=== PATIENT | male | born 1950 | race Hispanic/Latino ===

== ENCOUNTER 2018-11-06 01:38 | Emergency (ER) | payer BC, MEDICARE, OTHER ==
[~2018-11-06 01:38] MED LIST: ASPI-12 PO; DOCU50CA13 PO; FENO135C4 PO; FISH1CAP27 PO; FURO20TA6 PO; INSLAN SQ; METO50 PO; RAMI10CA69 PO; ROSU20TA23 PO; TYL3 PO; UBID200C18 PO
[2018-11-06] MEDS ORDERED: SODIUM CHLORIDE 0.9% 1000ML 1,000 ML IV ONE (02:20)
[2018-11-06 02:35] LABS: APPEARANCE,URINE Clear (CLEAR); BILIRUBIN,URINE Negative (NEGATIVE); COLOR,URINE Yellow (YELLOW); GLUCOSE, URINE (UA) >=1000 mg/dL (NEGATIVE); KETONES,URINE Negative (NEGATIVE); LEUKOCYTE ESTERASE ,URINE Small (NEGATIVE); NITRATE,URINE Negative (NEGATIVE); OCCULT BLOOD,URINE Negative (NEGATIVE); PH,URINE 5.5 (5.0-8.0); PROTEIN,URINE POS 1+ mg/dL (NEGATIVE); UROBILINOGEN,URINE 0.2 mg/dL (0.2-1.0)
[2018-11-06 02:43] LABS: BASOPHILS % (AUTO) 0.8 % (0.0-5.0); EOSINOPHILS % (AUTO) 3.2 % (0.0-8.0); HEMATOCRIT 45.7 % (42-54); LYMPHOCYTES % (AUTO) 24.2 % (21.0-51.0); MEAN CORPUSCULAR HEMOGLOBIN 28.5 pg (27.0-33.0); MEAN CORPUSCULAR HGB CONC 33.6 g/dL (32.0-36.0); MEAN CORPUSCULAR VOLUME 84.8 fL (79-99); MONOCYTES % (AUTO) 7.6 % (3.0-13.0); NEUTROPHILS % (AUTO) 64.2 % (40.0-77.0); PLATELET COUNT (AUTO) 126 K/uL (130-400); RED BLOOD CELL COUNT(AUTO) 5.38 MIL/uL (4.50-6.20); RED CELL DISTRIBUTION WIDTH 15.1 % (11.0-15.5); WHITE BLOOD COUNT (AUTO) 7.5 K/uL (4.8-10.8)
[2018-11-06 02:51] LABS: CREATININE 1.3 mg/dL (0.5-1.5); POTASSIUM 3.6 mmol/L (3.5-5.1)
[2018-11-06 02:53] LABS: BACTERIA,URINE Rare /HPF (None Seen); RBC,URINE 0-1 /HPF (0-1); WBC,URINE 0-1 /HPF (0-1)
== END 2018-11-06 04:47 | disposition home or self-care (01) ==
LOC: EDH 01:38
DX: S00.93XA Contusion of unspecified part of head, initial encounter (principal); I10 Essential (primary) hypertension; E11.9 Type 2 diabetes mellitus without complications; Z95.1 Presence of aortocoronary bypass graft; W07.XXXA Fall from chair, initial encounter; Y93.89 Activity, other specified; Y92.89 Other specified places as the place of occurrence of the external cause; Y99.8 Other external cause status
CPT/HCPCS: 36415; 70450; 80048; 81001; 84484; 85025; 93005; 96360; 99285; J7030

== ENCOUNTER → 2018-11-15 | Outpatient (CLI) | payer OTHER | END | disposition home or self-care (01) | LOC: RAH 16:08 | PROVIDERS: ATTEND Internal Medicine | DX: M51.37 Other intervertebral disc degeneration, lumbosacral region (principal); M51.36 Other intervertebral disc degeneration, lumbar region | CPT/HCPCS: 72100; 72220 ==

== ENCOUNTER → 2019-01-19 | Outpatient (CLI) | payer OTHER | END | disposition home or self-care (01) | LOC: SHCH 10:49 | PROVIDERS: ATTEND Internal Medicine Cardiovascular Disease | DX: R60.9 Edema, unspecified (principal) | CPT/HCPCS: 93970 ==

== ENCOUNTER 2020-04-11 10:09 | Day surgery (SDC) | payer OTHER ==
[2020-04-09 09:05] VITALS: BP 137/68
[2020-04-09 09:47] LABS: BASOPHILS % (AUTO) 0.7 % (0.0-5.0); EOSINOPHILS % (AUTO) 3.5 % (0.0-8.0); HEMATOCRIT 47.1 % (42-54); LYMPHOCYTES % (AUTO) 23.1 % (21.0-51.0); MEAN CORPUSCULAR HEMOGLOBIN 28.7 pg (27.0-33.0); MEAN CORPUSCULAR HGB CONC 32.7 g/dL (32.0-36.0); MEAN CORPUSCULAR VOLUME 87.9 fL (79-99); MONOCYTES % (AUTO) 8.4 % (3.0-13.0); PLATELET COUNT (AUTO) 167 K/uL (130-400); RED BLOOD CELL COUNT(AUTO) 5.36 MIL/uL (4.50-6.20); RED CELL DISTRIBUTION WIDTH 13.4 % (11.0-15.5); WHITE BLOOD COUNT (AUTO) 7.7 K/uL (4.8-10.8)
[2020-04-09 09:54] LABS: CREATININE 1.4 mg/dL (0.5-1.5); POTASSIUM 4.1 mmol/L (3.5-5.1)
[2020-04-09 09:58] LABS: INR 1.01 (0.85-1.15)
[2020-04-09 10:00] LABS: PARTIAL THROMBOPLASTIN TIME 23.6 SEC (26.3-35.5)
[2020-04-11] VITALS (7 sets, daily range): BP systolic 119–198; BP diastolic 66–90
[~2020-04-11] VITALS: Ht 162.6 cm; Wt 103.7 kg
[~2020-04-11 10:09] MED LIST changes: -ASPI-12 PO; +CHLO25TA3 PO; +D ME PO; +DOCU100T9 PO; -DOCU50CA13 PO; +DULA0.75 SQ; +EMPA1TAB5 PO; +EZET10TA48 PO; -FENO135C4 PO; -FURO20TA6 PO; -INSLAN SQ; +INSU100V37 SQ; +INSU200I SQ; +MEMA5TAB42 PO; +METO100T14 PO; -METO50 PO; +QUET25TA34 PO; +SODIUM CHLORIDE 0.9% 1000ML 1,000 ML IV SCH; -TYL3 PO; -UBID200C18 PO
[2020-04-11] MEDS ORDERED: BUPIVACAINE/PF 0.25% 30ML VIAL IJ ONE (11:21)
[2020-04-11] MEDS ORDERED: FENTANYL CITRATE PF 50 MCG/1 ML 2ML VIAL ONE (11:21)
[2020-04-11] MEDS ORDERED: LIDOCAINE HCL 1% MDV 50ML VIAL ONE (11:21)
[2020-04-11] MEDS ORDERED: MIDAZOLAM HCL 1 MG/ML 2ML VIAL ONE (11:21)
== END 2020-04-11 13:59 | disposition home or self-care (01) ==
LOC: DAH 10:09
PROVIDERS: ATTEND Internal Medicine Cardiovascular Disease
DX: I48.91 Unspecified atrial fibrillation (principal); I11.0 Hypertensive heart disease with heart failure; I50.32 Chronic diastolic (congestive) heart failure; K21.9 Gastro-esophageal reflux disease without esophagitis; G47.33 Obstructive sleep apnea (adult) (pediatric); E11.9 Type 2 diabetes mellitus without complications; E66.9 Obesity, unspecified; E78.00 Pure hypercholesterolemia, unspecified; Z82.49 Family history of ischemic heart disease and other diseases of the circulatory system; Z83.3 Family history of diabetes mellitus; Z82.3 Family history of stroke; Z83.511 Family history of glaucoma; Z79.01 Long term (current) use of anticoagulants; Z95.5 Presence of coronary angioplasty implant and graft; Z95.2 Presence of prosthetic heart valve; Z68.36 Body mass index [BMI] 36.0-36.9, adult
CPT/HCPCS: 33285; 36415; 71045; 80048; 82948; 85025; 85610; 85730; 93005; A4215; A4216; A4221; A4222; A4223 ×3; A4606; A4649; A4663; C1764; J2250; J3010; J3490 ×2; J7030; 99156

== ENCOUNTER → 2022-10-08 | Outpatient (CLI) | payer OTHER ==
[~2022-10-08] MED LIST changes: -QUET25TA34 PO; +QUET25TA36 PO; -SODIUM CHLORIDE 0.9% 1000ML 1,000 ML IV SCH
== END | disposition home or self-care (01) ==
LOC: RAH 13:32
PROVIDERS: ATTEND Otolaryngology
DX: J32.0 Chronic maxillary sinusitis (principal)
CPT/HCPCS: 70486

== ENCOUNTER 2023-10-01 08:15 | Day surgery (SDC) | payer OTHER ==
[2023-09-29 14:39] LABS: BASOPHILS # (AUTO) 0.05 K/uL (0.00-0.20); BASOPHILS % (AUTO) 0.6 % (0.0-5.0); EOSINOPHILS # (AUTO) 0.31 K/uL (0.00-0.70); EOSINOPHILS % (AUTO) 3.8 % (0.0-8.0); HEMATOCRIT 48.5 % (42-54); IMMATURE GRANULOCYTE ABSOLUTE 0.03 K/uL (0-1); LYMPHOCYTES # (AUTO) 1.8 K/uL (1.0-4.8); MEAN CORPUSCULAR HEMOGLOBIN 27.8 pg (27.0-33.0); MEAN CORPUSCULAR VOLUME 84.2 fL (79-99); MONOCYTES # (AUTO) 0.7 K/uL (0.1-1.0); MONOCYTES % (AUTO) 8.2 % (3.0-13.0); NEUTROPHILS # (AUTO) 5.4 K/uL (1.8-7.7); PLATELET COUNT (AUTO) 163 K/uL (130-400); RED BLOOD CELL COUNT(AUTO) 5.76 MIL/uL (4.50-6.20); RED CELL DISTRIBUTION WIDTH 14.6 % (11.0-15.5); WHITE BLOOD COUNT (AUTO) 8.3 K/uL (4.8-10.8)
[2023-09-29 14:44] VITALS: BP 156/77; PULSE 75; RESP 18
[2023-09-29 14:50] LABS: CREATININE 1.6 mg/dL (0.5-1.3); POTASSIUM 4.2 mmol/L (3.5-5.1)
[2023-09-29 14:53] LABS: INR 1.01 (0.85-1.15); PROTHROMBIN TIME 10.9 SEC (9.6-11.6)
[2023-09-29 15:13] LABS: B-TYPE NATRIURETIC PEPTIDE 19 pg/mL (0-100)
[2023-09-29 15:13] LABS: APPEARANCE,URINE CLEAR (CLEAR); BILIRUBIN,URINE NEGATIVE (NEGATIVE); COLOR,URINE LIGHT-YELLOW (YELLOW); GLUCOSE, URINE (UA) >=1000 mg/dL (NEGATIVE); KETONES,URINE NEGATIVE (NEGATIVE); LEUKOCYTE ESTERASE ,URINE 25 Leu/uL (NEGATIVE); NITRATE,URINE NEGATIVE (NEGATIVE); PROTEIN,URINE 30 mg/dL (NEGATIVE); UROBILINOGEN,URINE 0.2 mg/dL (0.2-1.0)
[2023-09-29 15:21] LABS: ADD UA MICROSCOPIC YES
[2023-09-29 15:22] LABS: SQUAMOUS EPITHELIAL CELL,UR RARE /HPF (0-2)
[2023-09-29 15:32] LABS: PARTIAL THROMBOPLASTIN TIME 22.8 SEC (26.3-35.5)
[~2023-10-01] VITALS: Ht 167.6 cm; Wt 103.4 kg
[2023-10-01] VITALS (11 sets, daily range): BP systolic 131–158; BP diastolic 64–80; PULSE 62–69; RESP 11–17
[~2023-10-01 08:15] MED LIST changes: +ACET-2247 PO; +AEC81 PO; -CHLO25TA3 PO; -D ME PO; -DOCU100T9 PO; +DONE10TA43 PO; -DULA0.75 SQ; +HYDR12.54 PO; +MEMA5TAB16 PO; -MEMA5TAB42 PO; -RAMI10CA69 PO; +SEMA1PEN3 SQ
[2023-10-01] MEDS: 0.9%NACL 1000ML 1,000 ML IV ONE (09:32)
[2023-10-01] MEDS ORDERED: LIDOCAINE HCL 400MG/20ML VIAL ONE (12:54)
[2023-10-01] MEDS ORDERED: FENTanyl CITRate PF 50 MCG/1 ML 2ML VIAL ONE (12:54)
[2023-10-01] MEDS ORDERED: MIDAZOLAM HCL 1 MG/ML 2ML VIAL ONE (12:54)
[2023-10-01] MEDS ORDERED: NITROGLYCERIN 50MG VIAL ONE (12:55)
[2023-10-01] MEDS ORDERED: IOHEXOL 350 MG/ML 100ML INFUS..BTL IV ONE (12:55)
[2023-10-01] MEDS ORDERED: HEParin-NS 1,000 UNIT/500 ML 1,000 ML IV ONE (12:55)
[2023-10-01] MEDS ORDERED: HEParin 10,000 UNIT/10ML (1,000 UNIT/ML) VIAL ONE (12:55)
[2023-10-01] MEDS ORDERED: niCARDIpine 25MG INJ IV ONE (12:57)
[2023-10-01] MEDS ORDERED: BIVALIRUDIN 250 MG/VIAL IV ONE ×2 (12:57→14:44)
[2023-10-01] MEDS ORDERED: HEParin-NS 1,000 UNIT/500 ML 500 ML IV ONE (14:25)
[2023-10-01] MEDS ORDERED: TICAGrelor 90 MG TABLET ONE (14:45)
[2023-10-01] MEDS ORDERED: ASPIRIN 325MG EC TAB PO ONE (14:46)
[2023-10-01] MEDS ORDERED: TICA90TA PO (15:24)
[2023-10-01] MEDS ORDERED: 0.9%NACL 1000ML 1,000 ML IV SCH (15:30)
[2023-10-01] MEDS ORDERED: METOPROLOL TARTRATE 50 MG TAB PO SCH (21:00)
[2023-10-01] MEDS ORDERED: TICAGrelor 90 MG TABLET PO SCH (21:00)
[2023-10-01] MEDS ORDERED: ATORVASTATIN 40 MG TABLET PO SCH (21:00)
[2023-10-01] MEDS ORDERED: ASPIRIN 81 MG EC TAB PO SCH (21:00)
[2023-10-01] MEDS ORDERED: queTIAPine fuMARate 25 MG TAB PO SCH (21:00)
[2023-10-01] MEDS ORDERED: MEMANTINE HCL 5 MG TABLET PO SCH (21:00)
[2023-10-02] MEDS ORDERED: hydroCHLOROthiazide 25 MG TABLET PO SCH (09:00)
[2023-10-02] MEDS ORDERED: EMPAGLIFLOZIN PO SCH (09:00)
[2023-10-02] MEDS ORDERED: INSULIN GLARGINE 100 UNITS/ML 10 ML VIAL SQ SCH (09:00)
[2023-10-02] MEDS ORDERED: ASPIRIN 81MG CHEW TAB PO SCH (09:00)
[2023-10-02] MEDS ORDERED: doNEPEZil HCL 5 MG TAB PO SCH (09:00)
[2023-10-02] MEDS ORDERED: METFORMIN HCL PO SCH (09:00)
[2023-10-02] MEDS ORDERED: EZETIMIBE 10 MG TAB PO SCH (09:00)
[2023-10-08] MEDS ORDERED: Semaglutide (Ozempic) 1 MG SQ SCH (09:00)
== END 2023-10-01 19:40 | disposition home or self-care (01) ==
LOC: DAH 08:15
PROVIDERS: ATTEND Internal Medicine Cardiovascular Disease
DX: I25.118 Atherosclerotic heart disease of native coronary artery with other forms of angina pectoris (principal); T82.855A Stenosis of coronary artery stent, initial encounter; I50.30 Unspecified diastolic (congestive) heart failure; I48.91 Unspecified atrial fibrillation; G47.33 Obstructive sleep apnea (adult) (pediatric); K21.9 Gastro-esophageal reflux disease without esophagitis; E78.00 Pure hypercholesterolemia, unspecified; I87.2 Venous insufficiency (chronic) (peripheral); Z79.82 Long term (current) use of aspirin; Z79.4 Long term (current) use of insulin; Z79.899 Other long term (current) drug therapy; Y82.8 Other medical devices associated with adverse incidents
CPT/HCPCS: 80048; 83880; 85025; 85610; 85730; 81001; 36415; 71045; 93005; 93454; 92978; 92972; 82948; C9600; Q9965 ×2; C1887; C1894 ×2; C1725 ×5; C1874 ×2; C1760; C1753; C1769; J3010; J3490 ×3; J7030; J2250; J1644 ×2; J0583 ×2; Q9967; A4215; A4222; A4221; A4663; A4216; A4606; A4223 ×3; 99156; 99157